=== PATIENT | male | born 1940 | race Caucasian/White ===

== ENCOUNTER 2016-05-16 09:44 | Day surgery (SDC) | payer OTHER ==
--- NOTE | 2016-05-09 14:25 | HP ---
Admitting History and Physical - Primary Care Physician PCP: Mira Del Castillo - Admission Chief Complaint: Right upper chest melanoma History of Present Illness: 68 year old male who went to his straight cutter because of a sebaceous cyst and during exam a pigmented lesion was noted on right upper chest that was biopsied revealing 1.01mm melanoma without ulceration the melanoma extends to the base of the peripheral margin History Source: Patient Limitations to Obtaining History: No Limitations - Past Medical History Cardiovascular: Yes: CAD, Hyperlipdemia Endocrine: Yes: Hypothyroidism Additional Past Medical History: gout - Past Surgical History Past Surgical History: Yes: Bypass (triple coronary bypass 2011) - Smoking History Smoking history: Former smoker Have you smoked in the past 12 months: No - Alcohol/Substance Use Hx Alcohol Use: Yes (social) Home Medications - Allergies Allergies/Adverse Reactions: Allergies Allergy/AdvReac Type Severity Reaction Status Date / Time No Known Allergies Allergy Verified 05/09/16 14:25 - Home Medications Home Medications (free text): allopurinol,tamsulosin,metoprolol,atorvastatin, levothyroxine baby ASA Vit D Family Disease History - Family Disease History Family Disease History: CA: Mother (basal cell) Physical Examination Integumentary: Yes: Other (1.0 cm eschar of right upper chest at midclavicle line above nipple S/P biopsy for diagnosed melanoma, no palpable adenopathy) Problem List - Problems (1) Malignant melanoma of skin of chest Code(s): C43.59 - MALIGNANT MELANOMA OF OTHER PART OF TRUNK Assessment/Plan malignant wide excision of upper chest sentinel node biopsy lymphoscintogram
[2016-05-10 12:46] VITALS: BMI 25.7
[2016-05-16] MEDS ORDERED: ONDANSETRON 4 MG/2 ML VIAL IVPB PRN (10:03)
[2016-05-16] MEDS ORDERED: KETOROLAC TROMETHAMINE 30 MG/1 ML VIAL IVPUSH PRN (10:03)
[2016-05-16] MEDS ORDERED: PROPOFOL 20 ML ONE (10:13)
[2016-05-16] MEDS ORDERED: MIDAZOLAM HCL 2 MG/2 ML SINGLE DOSE VIAL ONE (10:13)
[2016-05-16] MEDS ORDERED: DEXTROSE 5%-0.45% SALINE 1,000 ML IV SCH (10:15)
[2016-05-16] MEDS ORDERED: LIDOCAINE HCL/PF 2% SDV 5ML VIAL ONE (10:15)
[2016-05-16] MEDS ORDERED: ceFAZolin SODIUM 1 GM VIAL ONE (10:17)
[2016-05-16] MEDS ORDERED: DEXAMETHASONE SOD PHOSPHATE 4 MG/1 ML VIAL ONE (10:17)
[2016-05-16] MEDS ORDERED: ONDANSETRON 4 MG/2 ML VIAL ONE (10:17)
[2016-05-16] MEDS ORDERED: ISOSULFAN BLUE 10 MG/ML VIAL SQ ONE (10:25)
[2016-05-16] MEDS ORDERED: LIDOCAINE HCL 1%, 10 MG/ML (20ML VIAL) ONE (10:25)
[2016-05-16] MEDS ORDERED: ePHEDrine SULFATE 50 MG/1 ML AMPULE ONE (11:23)
[2016-05-16] MEDS ORDERED: PHENYLEPHRINE HCL 10 MG/1 ML SINGLE DOSE VIAL ONE (11:23)
[2016-05-16] MEDS ORDERED: LIDOCAINE 1%/EPI 1:100000 (20 ML MULTI DOSE VIAL) INF ONE (11:44)
[2016-05-16] MEDS ORDERED: LACTATED RINGERS SOLUTION 1,000 ML IV SCH (12:45)
[2016-05-16] MEDS ORDERED: ONDANSETRON 4 MG/2 ML VIAL IVPUSH PRN (13:02)
[2016-05-16] MEDS ORDERED: oxyCODONE HCL 5 MG TABLET PO PRN (13:03)
[2016-05-16 13:57] VITALS: TEMP 97.8
[2016-05-16 14:57] VITALS: BP 130/64; PULSE 76
--- NOTE | 2016-05-16 21:20 | OP ---
DATE OF OPERATION: 05/16/2016 PREOPERATIVE DIAGNOSIS: Right upper chest melanoma. POSTOPERATIVE DIAGNOSIS: Right upper chest melanoma. PROCEDURE: Right upper chest melanoma wide excision with right axillary sentinel lymph node biopsy. ANESTHESIA: General, intubated. ATTENDING SURGEON: Jr Del Castillo MD TOOL GRINDER OPERATOR SURFACE: JONNY Medina ESTIMATED BLOOD LOSS: Minimal. COMPLICATIONS: None. PROCEDURE: The patient was made aware of the risks and benefits of the procedure and consented. Preoperatively, the patient went to the nuclear medicine department, where lymphoscintigraphy was performed, which showed uptake in the right axilla. The patient was then brought to the operating room, placed in a supine position. After general anesthesia was induced, the patient was intubated. Then, 1.5 mL of isosulfan blue was infiltrated into the dermal tissue around the lesion. The operative site was prepped and draped in the sterile fashion. A curvilinear incision was made in the right axilla using blunt and sharp dissection. With the radio-probe, 2 clusters of lymph nodes were identified as hot and blue and surgically excised and submitted to pathology. Palpation of the rest of the axilla revealed no suspicious lesions and counts were less than 10% of the baseline. The wound was copiously irrigated with normal saline. Hemostasis maintained by electrocautery. The wound was then closed with deep 3-0 Vicryl, followed running subcuticular 4-0 Monocryl. The index lesion was then approached and 1.5 cm margins were performed in an elliptical incision oriented obliquely. Using electrocautery, skin and soft tissues were dissected down to the pectoral fascia, which was excised with the lesion, which was submitted with a short suture superior, long suture lateral. Tissue flaps were made by taking the tissue off the pectoralis muscle, extending approximately 8 cm in each direction, incising the underlying subcutaneous fascia and advancing the tissue into the defect with [id number] sutures of 2-0 Vicryl. The skin was then closed with interrupted sutures of 3-0 Vicryl, followed by a running simple suture of 3-0 nylon. Steri-Strips and a sterile dressing were then applied. With the patient having tolerated the procedure well, was transferred to the recovery room in excellent condition. JR DEL CASTILLO M.D. [id number]
--- NOTE | 2016-05-22 13:43 | PATH ---
Surgical Pathology Report Patient Name: GRACIE YUEN [facility]. Rec. #: [id number] /Age/Gender: 1940 (Age: 76) / M Account: [id number] Location: [facility] [place] [facility] Taken: 05/16/2016 Received: 05/16/2016 Reported: 05/22/2016 Physicians: Mira Del Castillo M.D. Specimen(s) Received A: RIGHT AXILLARY SENTINEL NODES B: WIDE EXCISION MELANOMA RIGHT UPPER CHEST Clinical History Right upper chest melanoma Final Diagnosis A. LYMPH NODES, RIGHT AXILLARY SENTINEL, EXCISION: TWO LYMPH NODES, NEGATIVE FOR METASTATIC MELANOMA ON H&E STAINED SECTIONS AND MELANOCYTIC IMMUNOHISTOCHEMICAL MARKERS (HMB-45 AND MELAN-A). B. CHEST, RIGHT UPPER, MELANOMA, WIDE EXCISION: SKIN SHOWING SCAR. NO RESIDUAL MELANOMA IS IDENTIFIED. Comment: See also prior biopsy from outside institution (outside case #: [id number]/ourslide review case #: [id number]). Electronically Signed Taniya Jalloh M.D. Gross Description A. Received in formalin, labeled "right axillary sentinel nodes," are 2 mcfadden, irregular lymph nodes with attached fat measuring 1.1 x 0.6 x 0.6 cm and 2.0 x 0.6 x 0.4 cm. The specimens are bisected and entirely submitted in 2 cassettes as follows: 1-2-one whole bisected lymph node each. B. Received in formalin, labeled "wide excision melanoma right upper chest," is an 8.0 x 3.4 cm mcfadden, elliptical portion of skin excised to a depth of 3.2 cm. There is a short suture marking the superior (12:00) aspect and a long suture marking the lateral aspect (9:00) of the specimen, per the surgeon. The epidermal surface displays a 0.8 x 0.7 cm central, mcfadden, depressed lesion. The specimen is inked as follows: 12:00 to 6:00 green; 6:00 to 12:00 blue; deep red. Water Technician sections are submitted in 18 cassettes as follows: 5-0-ltek-thickness sections of lesion to 12:00 aspect with deep margin; 0-7-pyct-thickness sections of lesion to 6:00 aspect with deep margin; 9-1:00 radial margin; 10-2:00 radial margin; 11-bisected 3:00 tip; 12-4:00 radial margin; 13-5:00 radial margin; 14-7:00 radial margin; 15-8:00 radial margin; 16-bisected 9:00 tip; 17-10:00 radial margin; 18-11:00 radial margin. 05/17/201605/17/2016
== END 2016-05-16 14:59 | disposition home or self-care (01) ==
LOC: FASU 09:44
PROVIDERS: ATTEND Surgery Surgical Oncology
PROC: 0JB60ZX Excision of Chest Subcutaneous Tissue and Fascia, Open Approach, Diagnostic (ICD-10-PCS; principal; 2016-05-16 11:26)
PROC: 0JX60ZB Transfer Chest Subcutaneous Tissue and Fascia with Skin and Subcutaneous Tissue, Open Approach (ICD-10-PCS; 2016-05-16 11:26)
DX: C49.3 Malignant neoplasm of connective and soft tissue of thorax (principal)
CPT/HCPCS: 78195-TC; 88307-TC; 94760; A9541